=== PATIENT | female | born 1995 | race Caucasian/White ===

== ENCOUNTER 2019-03-27 22:27 | Emergency (ER) | payer SELFPAY ==
--- NOTE | 2019-03-28 09:42 | EKG REPORT ---
SEVERITY:- NORMAL ECG - SINUS RHYTHM : Confirmed by: Devyn Romero 28-Mar-2019 09:41:48
== END 2019-03-27 23:52 | disposition left against medical advice (07) ==
LOC: ER 22:27
DX: Z53.21 Procedure and treatment not carried out due to patient leaving prior to being seen by health care provider (principal)

== ENCOUNTER 2020-06-04 17:54 | Emergency (ER) | payer BC ==
--- NOTE | 2020-06-04 18:12 | ER Document Report ---
ED Medical Screen (RME) - General Chief Complaint: Numbness Stated Complaint: LEFT SIDE NUMBNESS/BLURRY VISION/DIZZINESS Time Seen by Provider: 06/04/20 18:04 - HPI Notes: 06/04/20 18:09 24-year-old female with a history of pots presents to the emergency room today for evaluation of sudden onset left-sided numbness and tingling to her face that radiated down her left arm at 2 PM along with dizziness, nausea, headache, shortness of breath at rest. Patient states that she laid down at 240, her symptoms subside a little bit but at 330 they all came back and this is what brought her to the emergency room. Denies any prior history of any of the symptoms occurring. Denies any new medications or foots. Patient states that she is on a 3-month control medication, unsure of her last menstrual cycle. Charge nurse Sonia, made aware 1805 of stroke alert due to HPI sudden onset left-sided numbness tingling of her face and her left arm. I have greeted and performed a rapid initial assessment of this patient. A com prehensive ED assessment and evaluation of the patient, analysis of test results and completion of the medical decision making process will be conducted by additional ED providers. PHYSICAL EXAMINATION: GENERAL: Well-appearing, well-nourished and in no acute distress. HEAD: Atraumatic, normocephalic. EYES: Pupils equal round extraocular movements intact, conjunctiva are normal. NECK: Normal range of motion CV: s1, s2 regular LUNGS: No respiratory distress Musculoskeletal: Normal range of motion NEUROLOGICAL: Normal speech, in wheelchair. PERRLA, EOMI. Full motor and sensory function throughout. Olive Grader + 2 equal bilaterally in BUE. Tongue midline. No pronator drift. No ataxia. Neck with APROM. Raises eyebrows. Strength is 5 out of 5 in bilateral upper. Speaks in full sentences. No weakness on one side. Able to recall 5 objects. SKIN: Warm, Dry, normal turgor, no rashes or lesions noted. The patient was evaluated during a global COVID-19 pandemic and that diagnosis was suspected/considered upon their initial presentation. Their evaluation, treatment and testing was consistent with current guidelines for patients who present with complaints or symptoms and may be related to COVID-19. - Related Data Allergies/Adverse Reactions: ondansetron [From Zofran] Allergy (Verified 03/27/19 23:01) oxycodone Allergy (Verified 03/27/19 23:01) Physical Exam - Vital signs Vitals: Temp Pulse Resp BP Pulse Ox 98.4 F 121 H 14 116/82 100 06/04/20 18:01 06/04/20 18:01 06/04/20 18:01 06/04/20 18:01 06/04/20 18:01 Course - Vital Signs Vital signs: Temp Pulse Resp BP Pulse Ox 98.4 F 121 H 14 116/82 100 06/04/20 18:01 06/04/20 18:01 06/04/20 18:01 06/04/20 18:01 06/04/20 18:01
--- NOTE | 2020-06-04 18:34 | RADIOLOGY REPORT (SQ) ---
EXAM DESCRIPTION: CT HEAD WITHOUT IMAGES COMPLETED DATE/TIME: 06/04/2020 6:15 pm REASON FOR STUDY: L sided facial and arm numbness/tingling@1423 COMPARISON: None. TECHNIQUE: Axial images acquired through the brain without intravenous contrast. Images reviewed wi th bone, brain and subdural windows. Additional sagittal and coronal reconstructions were generated. Images stored on PACS. All CT scanners at this facility use dose modulation, iterative reconstruction, and/or weight based d osing when appropriate to reduce radiation dose to as low as reasonably achievable (ALARA). [facility]: Dose Right [facility]: CareDose [facility]: Dose Right [facility]: Teradose 4D [facility]: Smart [employer] RADIATION DOSE: CT Rad equipment meets quality standard of care and radiation dose reduction techniq ues were employed. CTDIvol: 53.2 mGy. DLP: 937 mGy-cm. mGy. LIMITATIONS: None. FINDINGS: VENTRICLES: Normal size and contour. CEREBRUM: No masses. No hemorrhage. No midline shift. No evidence for acute infarction. Normal gra y/white matter differentiation. No areas of low density in the white matter. CEREBELLUM: No masses. No hemorrhage. No alteration of density. No evidence for acute infarction. EXTRAAXIAL SPACES: No fluid collections. No masses. ORBITS AND GLOBE: No intra- or extraconal masses. Normal contour of globe without masses. CALVARIUM: No fracture. PARANASAL SINUSES: No fluid or mucosal thickening. SOFT TISSUES: No mass or hematoma. OTHER: No other significant finding. IMPRESSION: NORMAL BRAIN CT WITHOUT CONTRAST. EVIDENCE OF ACUTE STROKE: NO. COMMENT: Pertinent positive or negative findings of the imaging study reported as a CRITICAL EXAM lubna H[employer]ING [employer] S[employer] DRIVER-C at18:28 on 06/04/2020. Category of Critical Exam: Stroke alert. Quality ID # [id number]: Final reports with documentation of one or more dose reduction techniques (e.g., Au tomated exposure control, adjustment of the mA and/or kV according to patient size, use of iterative reconstruction technique) TECHNICAL DOCUMENTATION: JOB ID: [id number] 2010 [employer]- All Rights Reserved Reading location - IP/workstation name: [email or web address]
--- NOTE | 2020-06-04 18:35 | RADIOLOGY REPORT (SQ) ---
EXAM DESCRIPTION: CHEST SINGLE VIEW IMAGES COMPLETED DATE/TIME: 06/04/2020 6:21 pm REASON FOR STUDY: L sided facial and arm numbness/tingling@1423 COMPARISON: None. EXAM PARAMETERS: NUMBER OF VIEWS: One view. TECHNIQUE: Single frontal radiographic view of the chest acquired. RADIATION DOSE: NA LIMITATIONS: None. FINDINGS: LUNGS AND PLEURA: No opacities, masses or pneumothorax. No pleural effusion. MEDIASTINUM AND HILAR STRUCTURES: No masses. Contour normal. HEART AND VASCULAR STRUCTURES: Heart normal in size. Normal vasculature. BONES: No acute findings. HARDWARE: None in the chest. OTHER: No other significant finding. IMPRESSION: NO ACUTE RADIOGRAPHIC FINDING IN THE CHEST. TECHNICAL DOCUMENTATION: JOB ID: [id number] 2010 [employer]- All Rights Reserved Reading location - IP/workstation name: [email or web address]
[2020-06-04 18:43] LABS: ABSOLUTE BASOPHILS # (AUTO) 0.1 10^3/uL (0.0-0.2); ABSOLUTE EOSINOPHILS # (AUTO) 0.1 10^3/uL (0.0-0.6); ABSOLUTE LYMPHOCYTES (AUTO) 2.1 10^3/uL (0.5-4.7); ABSOLUTE MONOCYTES (AUTO) 0.6 10^3/uL (0.1-1.4); BASOPHILS % (AUTO) 0.8 % (0-2); EOSINOPHILS % (AUTO) 1.8 % (0-6); HEMOGLOBIN 13.4 g/dL (12.0-15.5); LYMPHOCYTES % (AUTO) 30.7 % (13-45); MEAN CORPUSCULAR HEMOGLOBIN 30.8 pg (27.0-33.4); MEAN CORPUSCULAR HGB CONC 34.4 g/dL (32.0-36.0); MEAN CORPUSCULAR VOLUME 90 fl (80-97); MONOCYTES % (AUTO) 8.7 % (3-13); PLATELET COUNT 197 10^3/uL (150-450); RED BLOOD COUNT 4.36 10^6/uL (3.72-5.28); RED CELL DISTRIBUTION WIDTH 12.5 % (11.5-14.0); TOTAL CELLS COUNTED % (AUTO) 100 %; WHITE BLOOD COUNT 6.9 10^3/uL (4.0-10.5)
[2020-06-04 18:47] LABS: INTERNATIONAL RATION (INR) 0.92; PROTHROMBIN TIME 12.6 SEC (11.4-15.4)
[2020-06-04 19:04] LABS: ALBUMIN 4.2 g/dL (3.5-5.0); ALKALINE PHOSPHATASE 56 U/L (38-126); ANION GAP 7 (5-19); ASPARTATE AMINO TRANSFERASE 26 U/L (14-36); BILIRUBIN,TOTAL 0.4 mg/dL (0.2-1.3); BLOOD UREA NITROGEN 12 mg/dL (7-20); CALCIUM 9.4 mg/dL (8.4-10.2); CARBON DIOXIDE 26 mmol/L (22-30); CHLORIDE 102 mmol/L (98-107); GLUCOSE 98 mg/dL (75-110); TOTAL PROTEIN 7.4 g/dL (6.3-8.2)
--- NOTE | 2020-06-04 19:17 | EKG REPORT ---
SEVERITY:- BORDERLINE ECG - SINUS RHYTHM PROBABLE LEFT ATRIAL ABNORMALITY : Confirmed by: Lisa Butts MD 04-Jun-2020 19:16:30
[2020-06-04 22:07] LABS: APPEARANCE,URINE CLEAR; BILIRUBIN,URINE NEGATIVE (NEGATIVE); COLOR,URINE YELLOW; GLUCOSE, URINE NEGATIVE (NEGATIVE); KETONES,URINE TRACE mg/dL (NEGATIVE); LEUKOCYTE ESTERASE,URINE NEGATIVE (NEGATIVE); NITRITE,URINE NEGATIVE (NEGATIVE); PROTEIN,URINE NEGATIVE (NEGATIVE); URINE SPECIFIC GRAVITY 1.019; UROBILINOGEN,URINE NEGATIVE mg/dL (<2.0)
[2020-06-04] MEDS ORDERED: DIPHENHYDRAMINE HCL 50 MG/ML VIAL IV ONE (23:31)
[2020-06-04] MEDS ORDERED: PROCHLORPERAZINE EDISYLATE INJ 10 MG/2 ML VIAL IV ONE (23:31)
[2020-06-04] MEDS ORDERED: NORMAL SALINE 1000 ML 1,000 ML IV ONE (23:31)
--- NOTE | 2020-06-04 23:52 | ER Document Report ---
ED Neuro Symptoms/Deficit - General Chief Complaint: Numbness Stated Complaint: LEFT SIDE NUMBNESS/BLURRY VISION/DIZZINESS Time Seen by Provider: 06/04/20 23:00 Primary Care Provider: [facility] [Provider Group] - Follow up as needed [facility] [Provider Group] - Follow up as needed DEACON HENRY MD [NO LOCAL MD] - Follow up as needed Information source: Patient Notes: 24-year-old female with a history of pots presents to the emergency room today for evaluation of sudden onset left-sided numbness and tingling to her face that radiated down her left arm at 2 PM along with dizziness, nausea, headache, shortness of breath at rest. Patient states that she laid down at 240, her symptoms subside a little bit but at 330 they all came back and this is what brought her to the emergency room. Denies any prior history of any of the symptoms occurring. Denies any new medications or foots. Patient states that she is on a 3-month control medication, unsure of her last menstrual cycle. Patient presently states that her headache is present although mild pain at a 2 out of 5 scale at this time. Patient states that vision has now returned to normal and the tingling to the face is presently resolved. Patient denies any nausea at this time. TRAVEL OUTSIDE OF THE [place] IN LAST 30 DAYS: No - HPI Patient complains to provider of: Paresthesia, Vision Changes. No: Facial Droop Onset: This afternoon Symptoms are: Intermittent episodes Duration: Better Quality of pain: Achy Pain Level: 2 Loss of consciousness: No loss of consciousness Baseline Cognitive: Alert, oriented X 3 Baseline Gait: Walks w/o assistance Alert To: Name/Voice Patient Orientation: Person, Place, Time, Events Altered sensation: L facial - Now resolved Associated symptoms: Headache. denies: Back pain, Dizzy, Fainting, Fever, Vomiting Similar symptoms previously: No Recently seen / treated by doctor: No - Related Data Allergies/Adverse Reactions: ondansetron [From Zofran] Allergy (Verified 03/27/19 23:01) oxycodone Allergy (Verified 03/27/19 23:01) Past Medical History - General Information source: Patient - Social History Smoking Status: Never Smoker Frequency of alcohol use: Occasional Drug Abuse: None Occupation: None Family History: Reviewed & Not Pertinent - Past Medical History Cardiac Medical History: Reports: Other - pots Neurological Medical History: Reports: Other - Daily headaches GI Medical History: Reports: Other - Gastroparesis Psychiatric Medical History: Reports: Hx Anxiety Past Surgical History: Reports: Hx Cholecystectomy, Hx Orthopedic Surgery - R knee surgeries Review of Systems - Review of Systems Constitutional: No symptoms reported. denies: Fever EENT: Blurred vision - Now resolved Cardiovascular: No symptoms reported. denies: Chest pain, Dizziness Respiratory: No symptoms reported. denies: Cough, Short of breath Gastrointestinal: Nausea. denies: Abdominal pain, Vomiting Genitourinary: No symptoms reported Female Genitourinary: No symptoms reported Musculoskeletal: No symptoms reported. denies: Back pain, Neck pain Skin: No symptoms reported. denies: Rash Hematologic/Lymphatic: No symptoms reported Neurological/Psychological: Headaches, Tingling - Left side of face and left arm off and on that is presently resolved Physical Exam - Vital signs Vitals: Temp Pulse Resp BP Pulse Ox 98.4 F 121 H 14 116/82 100 06/04/20 18:01 06/04/20 18:01 06/04/20 18:01 06/04/20 18:01 06/04/20 18:01 - General General appearance: Appears well, Alert In distress: None - HEENT Head: Normocephalic, Atraumatic Eyes: Normal Conjunctiva: Normal Extraocular movements intact: Yes Eyelashes: Normal Pupils: PERRL Ears: Normal External canal: Normal Tympanic membrane: Normal. No: Injected, Purulent effusion, Retracted Nasal: Normal Mouth/Lips: Normal Mucous membranes: Normal Pharynx: Normal Neck: Normal, Supple. No: Lymphadenopathy, Meningismus - Respiratory Respiratory status: No respiratory distress Chest status: Nontender Breath sounds: Normal Chest palpation: Normal - Cardiovascular Rhythm: Regular Heart sounds: S1 appreciated, S2 appreciated Murmur: No - Abdominal Inspection: Normal Distension: No distension Tenderness: Nontender Organomegaly: No organomegaly - Back Back: Normal, Nontender. No: Vertebra tenderness - Extremities General upper extremity: Normal inspection, Nontender, Normal strength General lower extremity: Normal inspection, Nontender, Normal strength - Neurological Neuro grossly intact: Yes Cognition: Normal Orientation: AAOx4 Leyla Coma Scale Eye Opening: Spontaneous Leyla Coma Scale Verbal: Oriented Leyla Coma Scale Motor: Obeys Commands [place] Coma Scale Total: 15 Speech: Normal. No: Dysarthria Cranial nerves: Normal. No: Facial palsy, Tongue deviation Cerebellar coordination: Normal, Heel-massey, Finger-nose rhombey, Rapid alt. movements Additional motor exam normals: Equal planning engineer. No: Hemiplegia - Psychological Associated symptoms: Normal affect, Normal mood - Skin Skin Temperature: Warm Skin Moisture: Dry Skin Color: Normal Course - Re-evaluation Re-evalutation: 06/04/20 23:[address] Kwon regarding patient presentation and diagnostic evaluation. Agrees with plan for CT imaging of head and neck at this time. Will treat symptomatically for patient's symptoms. Patient is agreeable with this plan of care at this time. 06/05/20 01:45 Patient without any acute abnormality noted on CTA of the head or neck. Patient reports headache pain is improved although not completely resolved at this time. Patient without any focal deficits on examination at this time. Patient encouraged to follow-up with an heel caser as well as her neurologist for further evaluation of her symptoms at this time. Good return precautions dis cussed with patient. - Vital Signs Vital signs: Temp Pulse Resp BP Pulse Ox 98.9 F 90 19 107/87 H 100 06/05/20 02:02 06/04/20 22:02 06/05/20 02:02 06/05/20 02:02 06/05/20 02:02 - Laboratory Results Result Diagrams: 06/04/20 18:24 06/04/20 18:24 Laboratory Results Interpreted: 06/04/20 06/04/20 18:24 21:31 Sodium 134.7 L Urine Ketones TRACE H 06/05/20 08:35 Labs- All tests 24 hr 06/04/20 06/04/20 06/04/20 18:24 18:24 18:24 WBC 6.9 RBC 4.36 Hgb 13.4 Hct 39.0 MCV 90 MCH 30.8 MCHC 34.4 RDW 12.5 Plt Count 197 Lymph % (Auto) 30.7 Gates % (Auto) 8.7 Eos % (Auto) 1.8 Baso % (Auto) 0.8 Absolute Neuts (auto) 4.0 Absolute Lymphs (auto) 2.1 Absolute Monos (auto) 0.6 Absolute Eos (auto) 0.1 Absolute Basos (auto) 0.1 Seg Neutrophils % 58.0 PT 12.6 INR 0.92 Sodium 134.7 L Potassium 4.0 Chloride 102 Carbon Dioxide 26 Anion Gap 7 BUN 12 Creatinine 0.64 Est GFR ( Amer) > 60 Est GFR (MDRD) Non-Af > 60 Glucose 98 Calcium 9.4 Total Bilirubin 0.4 Direct Bilirubin 0.0 Neonat Total Bilirubin Not Reportable Neonat Direct Bilirubin Not Reportable Neonat Indirect Bili Not Reportable AST 26 ALT 12 Alkaline Phosphatase 56 Troponin I Total Protein 7.4 Albumin 4.2 Beta HCG, Quant < 2.39 Total Beta HCG NEGATIVE Urine Color Urine Appearance Urine pH Ur Specific [place] Urine Protein Urine Glucose (UA) Urine Ketones Urine Blood Urine Nitrite Urine Bilirubin Urine Urobilinogen Ur Leukocyte Esterase Urine WBC (Auto) Urine RBC (Auto) Squamous Epi Cells Auto Urine Mucus (Auto) Urine Ascorbic Acid 06/04/20 06/04/20 18:24 21:31 WBC RBC Hgb Hct MCV MCH MCHC RDW Plt Count Lymph % (Auto) Gates % (Auto) Eos % (Auto) Baso % (Auto) Absolute Neuts (auto) Absolute Lymphs (auto) Absolute Monos (auto) Absolute Eos (auto) Absolute Basos (auto) Seg Neutrophils % PT INR Sodium Potassium Chloride Carbon Dioxide Anion Gap BUN Creatinine Est GFR ( Amer) Est GFR (MDRD) Non-Af Glucose Calcium Total Bilirubin Direct Bilirubin Neonat Total Bilirubin Neonat Direct Bilirubin Neonat Indirect Bili AST ALT Alkaline Phosphatase Troponin I < 0.012 Total Protein Albumin Beta HCG, Quant Total Beta HCG Urine Color YELLOW Urine Appearance CLEAR Urine pH 5.0 Ur Specific [place] 1.019 Urine Protein NEGATIVE Urine Glucose (UA) NEGATIVE Urine Ketones TRACE H Urine Blood NEGATIVE Urine Nitrite NEGATIVE Urine Bilirubin NEGATIVE Urine Urobilinogen NEGATIVE Ur Leukocyte Esterase NEGATIVE Urine WBC (Auto) 1 Urine RBC (Auto) 0 Squamous Epi Cells Auto <1 Urine Mucus (Auto) MANY Urine Ascorbic Acid NEGATIVE Critical Laboratory Results Reviewed: No Critical Results - Radiology Results Critical Radiology Results Reviewed: No Critical Results - EKG Interpretation by Me EKG shows normal: Sinus rhythm Rate: Normal Additional EKG results interpreted by me: 06/05/20 08:35 This rhythm with a rate of 97, QTc 452, no acute ischemic changes Discharge - Discharge Clinical Impression: Resolved visual disturbance, Paresthesia Headache Qualifiers: Headache type: unspecified Headache chronicity pattern: unspecified pattern Intractability: not intractable Qualified Code(s): R51.9 - Headache, unspecified Condition: Stable Disposition: HOME, SELF-CARE Instructions: Intravenous Compazine for Headaches ([facility]), Headache ([facility]), Nausea or Vomiting, Nonspecific ([facility]) Additional Instructions: Return immediately for any new or worsening symptoms Followup with your primary care provider, call tomorrow to make a followup appointment Follow-up with an heel caser for further evaluation, call tomorrow for an appointment follow-up with your neurologist for recheck, call tomorrow for an appointment Prescriptions: Promethazine HCl [Phenergan 25 mg Tablet] 25 mg PO Q6H PRN #10 tablet PRN Reason: Referrals: [facility] [Provider Group] - Follow up as needed [facility] [Provider Group] - Follow up as needed DEACON HENRY MD [NO LOCAL MD] - Follow up as needed
--- NOTE | 2020-06-05 01:40 | RADIOLOGY REPORT (SQ) ---
CT angiogram head and neck with contrast on 06/05/2020 at 1:03 AM CLINICAL INDICATION: Right-sided headache, left facial paresthesia TECHNIQUE: Multiple axial images are obtained throughout the head and neck following the administration of IV contrast. Computer-generated 3-D reconstruction/MIPS were performed. NASCET criteria was utilized for stenosis evaluation in the neck. This exam was performed according to our departmental dose-optimization program, which includes automated exposure control, adjustment of the mA and/or kV according to patient size and/or use of iterative reconstruction technique. Total DLP is 334.38 mGy*cm. COMPARISON: CT head from 06/04/2020 FINDINGS: CTA NECK: There is normal appearance of the aortic arch with three great vessels originating off the arch without stenosis of the proximal great vessels. Bilateral vertebral arteries are codominant and form a normal-appearing basilar artery with no vertebrobasilar stenosis. There is no significant plaque or stenosis in the right common or internal carotid artery. There is no significant plaque or stenosis in the left common or internal carotid artery. There is no adenopathy, mass or fluid collection in the neck. CTA HEAD: Incidental origin of the right INTAKE SPECIALIST is noted as a normal variant. There is an otherwise normal appearance of the [place] and intracranial vasculature. There is no aneurysm, vascular malformation or significant stenosis. The dural venous sinuses are patent with no evidence of dural venous sinus thrombosis. IMPRESSION: 1. No evidence of carotid or vertebral artery stenosis. 2. Unremarkable CT angiogram of the head.
--- NOTE | 2020-06-05 01:40 | RADIOLOGY REPORT (SQ) ---
CT angiogram head and neck with contrast on 06/05/2020 at 1:03 AM CLINICAL INDICATION: Right-sided headache, left facial paresthesia TECHNIQUE: Multiple axial images are obtained throughout the head and neck following the administration of IV contrast. Computer-generated 3-D reconstruction/MIPS were performed. NASCET criteria was utilized for stenosis evaluation in the neck. This exam was performed according to our departmental dose-optimization program, which includes automated exposure control, adjustment of the mA and/or kV according to patient size and/or use of iterative reconstruction technique. Total DLP is 334.38 mGy*cm. COMPARISON: CT head from 06/04/2020 FINDINGS: CTA NECK: There is normal appearance of the aortic arch with three great vessels originating off the arch without stenosis of the proximal great vessels. Bilateral vertebral arteries are codominant and form a normal-appearing basilar artery with no vertebrobasilar stenosis. There is no significant plaque or stenosis in the right common or internal carotid artery. There is no significant plaque or stenosis in the left common or internal carotid artery. There is no adenopathy, mass or fluid collection in the neck. CTA HEAD: Incidental origin of the right HYDRAULIC MECHANIC is noted as a normal variant. There is an otherwise normal appearance of the [place] and intracranial vasculature. There is no aneurysm, vascular malformation or significant stenosis. The dural venous sinuses are patent with no evidence of dural venous sinus thrombosis. IMPRESSION: 1. No evidence of carotid or vertebral artery stenosis. 2. Unremarkable CT angiogram of the head.
[2020-06-05 02:10] VITALS: BP 107/87
== END 2020-06-05 02:10 | disposition home or self-care (01) ==
LOC: ER 17:54
DX: R20.0 Anesthesia of skin (principal); R20.2 Paresthesia of skin; R51.9 Headache, unspecified; H53.8 Other visual disturbances; R42 Dizziness and giddiness; R11.0 Nausea; R06.02 Shortness of breath; Z79.3 Long term (current) use of hormonal contraceptives; Z88.8 Allergy status to other drugs, medicaments and biological substances; Z88.6 Allergy status to analgesic agent; Z88.5 Allergy status to narcotic agent
CPT/HCPCS: 93005; 99285; 96361; 96374; 96375; 36415; 84702; 85025; 85610; 80053; 81001; 84484; 71045; 70450; 70496; 70498; 93010; J1200; J0780; J7030